=== PATIENT | female | born 1980 | race Hispanic/Latino ===

== ENCOUNTER 2016-06-24 00:57 | Inpatient (IN) | payer OTHER ==
[~2016-06-24] VITALS: Ht 157.5 cm; Wt 76.7 kg
[~2016-06-24 00:57] MED LIST: PREN1TAB47 PO
[2016-06-24] MEDS ORDERED: Lactated Ringer's 1,000 ML IV PRN (07:41)
[2016-06-24] MEDS: Lactated Ringer's 1,000 ML IV SCH ×4 (07:44→23:28)
[2016-06-24] MEDS ORDERED: Hemorrhage Kit, Post Partum XX ONE (07:45)
[2016-06-24] MEDS ORDERED: fentaNYL-PF 50 mCg/mL 2 mL Inj IVPUSH PRN (07:45)
[2016-06-24] MEDS ORDERED: Carboprost 250 mCg/mL Inj IM PRN (07:45)
[2016-06-24] MEDS ORDERED: Oxytocin 30 Units/500 mL LR 30 UNITS in IV Premix 1 EACH IV PRN (07:45)
[2016-06-24] MEDS ORDERED: Sodium Chloride LOK Flush 10 mL Syringe IVFLUSH PRN (07:45)
[2016-06-24] MEDS ORDERED: Ondansetron 2 mg/mL 2 mL Inj IVPUSH PRN (07:45)
[2016-06-24] MEDS ORDERED: Methylergonovine 0.2 mg/mL Inj IM PRN (07:45)
[2016-06-24] MEDS ORDERED: Oxytocin 10 Unit/mL Inj IM PRN (07:45)
[2016-06-24] MEDS: Misoprostol 25 mCg/0.25 Tablet VAGINAL SCH ×2 (08:02→11:30)
[2016-06-24 08:34] LABS: Mean Corpuscular Volume 95.4 fL (81-100)
[2016-06-24] MEDS ORDERED: CLON0.1T PO (08:51)
--- NOTE | 2016-06-24 19:31 | HP ---
[address] [address] HISTORY AND PHYSICAL PATIENT: YANG CONTEH : 1980 MR#: [id number] ADMIT: 06/24/2016 JOB ID: [id number] [facility] NOTE: DATE: 06/24/2016 This patient is a 35-year-old, AB 0, woman, followed prenatally at [facility], see record. course has been relatively uncomplicated except for chronic hypertension. She was sent to see Dr. Hermosillo, perinatologist and specialist in hypertension in at the [facility]. After evaluation and continued followup, he has managed her with clonidine 0.05 mg p.o. t.i.d., and blood pressures typically have been okay throughout . growth has been likely appropriate as well. Note that blood pressure has been increasing in the past week however, in spite of the clonidine, at times reaching 150/90 range and other times more normal. She has not had headache, blurry vision, epigastric or right upper quadrant pain or any significant proteinuria. Preeclampsia has thus not been felt to be likely, although chronic hypertension is gradually increasing recently. Now at 39 weeks of gestation(due date July 01, 2016), the patient has been admitted for labor induction as per Dr. Hermosillo's recommendation for 37-39 week induction in light of the chronic hypertension requiring medication. Cervix has not been highly favorable, although labor induction is indicated and thus has been implemented. In summary, then, this patient has chronic hypertension requiring medication, having seen Dr. Hermosillo, perinatologist at [facility], and with recommendation for delivery by 39 weeks, thus induction began this morning. Recent blood pressure gradually increasing, although no worrisome readings and no specific evidence for preeclampsia at this time. PHYSICAL EXAMINATION: On admission, height 62-3/4 inches. Last weight in the office 174 pounds. Last blood pressures in the office as well as on and off in the Center as low as 120/74, for example, and as high as 150/90 range, for example. Neck: No thyromegaly. Lungs: Clear to auscultation and percussion. Heart: Regular in rate and rhythm. Abdomen: Fundal height 39.5 cm. Positive heartbeat. Vertex presentation. Pelvic examination: Initial cervical exam at 1 cm and with some effacement. Bag of water intact. Vertex presentation. DIAGNOSTIC DATA: Preeclampsia labs reported to be normal. Platelets normal. IMPRESSION: 1. A 39-week . 2. Reproductive history: a. First -- 40 week vaginal delivery, 7 pound 2 ounce baby, reported 2 hour labor. b. Second -- 37-1/2 week vaginal delivery, 8 pound baby, 2 hour labor. c. Third -- 40 week vaginal delivery, uncertain weight, reported 6 hour labor. d. Fourth -- current. 3. Surgical history: a. Reproductive history -- see prior number. b. Cholecystectomy. 4. Chronic hypertension, using antihypertensive medication, clonidine 0.05 mg p.o. t.i.d., as recommended per Dr. Hermosillo at the [facility], perinatologist with specialty of hypertension management. Blood pressure gradually increasing intermittently over the past week, although no specific evidence for preeclampsia. 5. Abnormal 1 hour glucose challenge test, although 3 hour glucose tolerance test normal. 6. Rubella immune status. 7. Rh-positive status. 8. Up-to-date with Tdap. 9. Group B streptococcus negative. 10. Apparent seasonal allergies, periodically. 11. Prior cholecystectomy. 12. No known drug allergies. 13. Family history of hypertension (father), asthma (mother), twins (paternal aunts). PLAN: This patient has been admitted to [facility] at 39 weeks of gestation with chronic hypertension requiring medication, for labor induction. Anticipate vaginal delivery. Patient does not plan on epidural for anesthesia.
--- NOTE | 2016-06-24 19:53 | PROG NOTE ---
[address] [address] PROGRESS NOTE PATIENT: YANG CONTEH : 1980 MR#: [id number] ADMIT: 06/24/2016 JOB ID: [id number] DATE: 06/24/2016 [facility] NOTE: The patient was admitted this morning at 39 weeks of gestation with chronic hypertension. She has received Cytotec and then Pitocin therapy has been on and off, pain on contraction, intensity and frequency. Contractions have gradually strengthened in intensity and frequency and, in fact, cervix has changed from 1 cm to loose 2 cm and artificial rupture of membranes was accomplished with return of clear fluid. Intrauterine pressure catheter was also placed and has demonstrated good quality contractions frequently. heart tracing has been good. Continue labor management, anticipating vaginal delivery today. Also, continue to track blood pressure which has not been a problem.
[2016-06-25] MEDS ORDERED: Lactated Ringer's 1,000 ML IV SCH ×2 (01:04→02:04)
[2016-06-25] MEDS ORDERED: Lactated Ringer's 500 ML IV ONE (01:04)
[2016-06-25] MEDS ORDERED: Ondansetron 2 mg/mL 2 mL Inj IVPUSH PRN (01:05)
[2016-06-25] MEDS ORDERED: Atropine 1 mg/10 mL (Code) Syringe IVPUSH PRN (01:05)
[2016-06-25] MEDS ORDERED: EPHEDrine Sulfate 50 mg/mL Inj IVPUSH PRN (01:05)
[2016-06-25] MEDS ORDERED: fentaNYL 2 mCg/mL-Bupiv 0.125% 100 ML EPIDURAL SCH (01:05)
[2016-06-25] MEDS ORDERED: Oxytocin 30 Units/500 mL LR 30 UNITS in IV Premix 1 EACH IV PRN (02:05)
[2016-06-25] MEDS ORDERED: Carboprost 250 mCg/mL Inj IM PRN (02:05)
[2016-06-25] MEDS ORDERED: Benzocaine (Dermoplast) 20% 60 Gm Spray TOPICAL PRN (02:05)
[2016-06-25] MEDS ORDERED: Hemorrhage Kit, Post Partum XX ONE (02:05)
[2016-06-25] MEDS ORDERED: Measles-Mumps-Rubella Vaccine 0.5 mL Inj SUBQ ONE (02:05)
[2016-06-25] MEDS ORDERED: Influenza (Adult) Vaccine 0.5 mL Syringe IM ONE (02:05)
[2016-06-25] MEDS ORDERED: LANOlin HPA 7 Gm Ointment TOPICAL PRN (02:05)
[2016-06-25] MEDS ORDERED: Oxytocin 10 Unit/mL Inj IM PRN (02:05)
[2016-06-25] MEDS ORDERED: TdaP Vaccine 0.5 mL Inj IM ONE (02:05)
[2016-06-25] MEDS ORDERED: Witch Hazel-Glycerin Pads TOPICAL PRN (02:05)
[2016-06-25] MEDS ORDERED: Methylergonovine 0.2 mg/mL Inj IM PRN (02:05)
[2016-06-25] MEDS: HYDROcodone-APAP 5-325 mg Tablet PO PRN ×3 (05:08→16:55)
[2016-06-25] MEDS ORDERED: Sodium Chloride LOK Flush 10 mL Syringe IVFLUSH SCH (08:30)
[2016-06-26 08:32] LABS: Mean Corpuscular Hemoglobin 31.9 pg (27.0-35.0); Mean Corpuscular Volume 96.5 fL (81-100)
--- NOTE | 2016-06-26 12:29 | PCM.DC.OB ---
Obstetrical Discharge Summary Date of Service June 26, 2016 Date of hospital admission June 24, 2016 at 06:52 Date of Discharge: June 26, 2016 Providers Admitting Physician: Kelton Murcia MD Primary Care Physician: Kelton Murcia MD Attending Physician: Kelton Murcia MD Problems: (1) Status post normal vaginal delivery Status: Acute ICD Code: [id number] (2) Chronic hypertension affecting Status: Acute ICD Code: O10.919 Consultations None Invasive procedures NVD Date of Procedure: June 25, 2016 Hospital Course: Patient presented for induction due to HTN. This went smoothly. Delivered without complication or significant laceration. Recovered in excellent fashion and did not require HTN meds. BP's were excellent in recovery. Clonidine (Clonidine) 0.1 Mg Tablet 0.05 MG PO TID (Reported) Last Taken: Unknown Dose on 06/24/16 0700 Vit/Fe Fumarate/Fa- Expunged Drug, Do (-Expunged Drug, Do Not Renew!) 1 Tab Tablet 1 PO DAILY (Reported) Follow-up plan See Dr. Murcia in 2 weeks. Discharge Diet: No restrictions Discharge Activity-General: Pelvic Rest for 6 weeks, Be up and about, Balance rest and activity, Activity as pain allows, Activity as energy allows, No lifting >15 pounds for 2 weeks copies to: Kelton Murcia MD, David B MD June 26, 2016 12:29
--- NOTE | 2016-06-26 12:30 | PCM.DIOB ---
Obstetrical Disch Instruction Date of Service: June 26, 2016 Dates of Hospitalization Date of Hospital Admission June 24, 2016 at 06:52 Providers Admitting Physician: Kelton Murcia MD Primary Care Physician: Kelton Murcia MD Attending Physician: Kelton Murcia MD Discharge Diagnosis Problems: (1) Status post normal vaginal delivery Status: Acute ICD Code: [id number] (2) Chronic hypertension affecting Status: Acute ICD Code: O10.919 Diet Discharge Diet: No restrictions Activity Discharge Activity-General: Pelvic Rest for 6 weeks, Try not to overdue, Be up and about, Balance rest and activity, Activity as pain allows, Activity as energy allows Dressing and Incisional Care Hygiene: May shower, Perineal care, Sitz bath, Dermoplast spray, Witch Brenda pads Follow Up Plan Follow-up Provider (F9): Kelton Murcia MD Follow-up appointment: Weeks (2) Call your provider for: Fever or Chills, Shortness of breath, Heavy vaginal bleeding, Epigastric pain, Excessive constipation, Vaginal discomfort, Red painful breasts Jonnathan Mabry MD June 26, 2016 12:30
[2016-06-26 12:32] VITALS: BP 139/86; PULSE 71; RESP 17
--- NOTE | 2016-06-27 23:03 | PROG NOTE ---
[address] [address] PROGRESS NOTE PATIENT: ALICIA PAUL : 1980 MR#: [id number] ADMIT: 06/24/2016 JOB ID: [id number] DATE: 06/25/2016 [facility] NOTE: Prior note could not be located and thus I am dictating this report. Alicia Paul was admitted to [facility] in the morning of June 24, 2016, on which day cervical ripening and then labor induction were accomplished in an effort to deliver at 39 weeks of gestation in the setting of chronic hypertension requiring antihypertensive medication. Ultimately, the patient finally started changing cervix and she progressed through the active phase of labor with reasonable heart tracing and reasonable variability throughout. Blood pressure was not a particularly significant issue. The patient had elected primarily to go without epidural anesthesia. She changed her mind towards the very end, but then was ready to deliver and so she did not receive epidural. Once completely dilated, the patient pushed well very briefly and the head delivered, followed by the body and extremities. Note reduction of moderately loose nuchal cord over the shoulder. The baby was active and crying and vigorous upon delivery and handed to mother for bonding. After a minute of delay, umbilical cord was clamped and cut. Cord blood was obtained for routine studies. The placenta with membranes was spontaneously delivered, intact. The uterus contracted well with massage plus intravenous Pitocin infusion. Blood loss was in the 100 cc range. Betadine solution was used to cleanse the vulvovaginal region and there were no lacerations noted. Instrument, needle and sponge counts were all found to be correct. The procedure was thus complete. It certainly is anticipated that mother and baby will do very well during the timeframe. Blood pressure will be tracked closely off of antihypertensive medication, probably will not need such medication. Note that there was no specific evidence for preeclampsia in late or during hospitalization.
== END 2016-06-26 13:15 | disposition home or self-care (01) | DRG 774 ==
LOC: FBC 06:52
PROVIDERS: ADMIT Obstetrics & Gynecology; ATTEND Obstetrics & Gynecology
PROC: 10E0XZZ Delivery of Products of Conception, External Approach (ICD-10-PCS; principal; 2016-06-24)
PROC: 10907ZC Drainage of Amniotic Fluid, Therapeutic from Products of Conception, Via Natural or Artificial Opening (ICD-10-PCS; 2016-06-24)
PROC: 3E033VJ Introduction of Other Hormone into Peripheral Vein, Percutaneous Approach (ICD-10-PCS; 2016-06-24)
PROC: 10H07YZ Insertion of Other Device into Products of Conception, Via Natural or Artificial Opening (ICD-10-PCS; 2016-06-24)
DX: O10.92 Unspecified pre-existing hypertension complicating childbirth (principal); O69.81X0 Labor and delivery complicated by cord around neck, without compression, not applicable or unspecified; Z3A.39 39 weeks gestation of pregnancy; Z37.0 Single live birth